=== PATIENT | female | born 1945 | race Caucasian/White ===

== ENCOUNTER → 2018-08-06 10:18 | Outpatient (CLI) | payer OTHER, SELFPAY ==
--- NOTE | 2018-08-06 10:19 | DI.RAD.S_ITS ---
PROCEDURE: XR CERVICAL SPINE 4V OR 5V INDICATIONS: Cervical spondylosis TECHNIQUE: 5 total views of the cervical spine were acquired, including bilateral oblique views. COMPARISON: None. FINDINGS: Bones: No fractures or dislocations to the T1 level. No suspicious lytic or blastic lesions are seen. Mild anterolisthesis can be seen at the C5-C6 and the C6-C7 levels. There is mild to space narrowing at C6-C7. Moderate to severe disc space narrowing is seen at C7-T1. Oblique images moderate neural foraminal narrowing on the left at the C3-C4 level with mild neural foraminal narrowing at C4-C5 and C5-C6 and moderate neural foraminal narrowing at C6-C7. On the right, there is mild to moderate neural foraminal narrowing seen at C4-C5 with at least moderate neural foraminal narrowing at C5-C6 and mild neural foraminal narrowing at C6-C7. Multiple levels of facet arthropathy are seen. Soft tissues: No prevertebral soft tissue swelling. The visualized lung apices are unremarkable. IMPRESSION: Multiple levels of cervical spine degenerative change are seen, which are most prominent inferiorly. Dictated by: Matthew Martinez M.D. on 08/06/2018 at 10:28 Approved by: Matthew Martinez M.D. on 08/06/2018 at 10:32
== END ==
PROVIDERS: PCP Family Medicine; Visit Provider Physical Medicine & Rehabilitation
DX: M47.812 Spondylosis without myelopathy or radiculopathy, cervical region (principal); M48.02 Spinal stenosis, cervical region
CPT/HCPCS: 72050

== ENCOUNTER 2019-01-02 07:29 | Outpatient (CLI) | payer OTHER, SELFPAY ==
[2019-01-02] VITALS (7 sets, daily range): BP systolic 130–160; BP diastolic 71–87; PULSE 74–85; RESP 16–18; TEMP 36.2; O2SAT 95–100
--- NOTE | 2019-01-02 07:31 | DI.RAD.S_ITS ---
PROCEDURE: PAIN L/S TRANSFORAMINAL INJECT INDICATIONS: Lumbosacral spondylosis FINDINGS: Fluoroscopic spot filming was performed to verify placement of spinal needles at the L3-4 right-sided level(s), as labeled on the films. Appropriate location(s) of the needle tip(s) was confirmed by injection of iodinated contrast. IMPRESSION: Successful needle tip localization for right L3-4 nerve root epidural steroid injection. Dictated by: Ramu Sorto M.D. on 01/04/2019 at 9:20 Approved by: Ramu Sorto M.D. on 01/04/2019 at 9:21
[2019-01-02] MEDS: MIDAZOLAM 5 MG/5 ML VIAL IV (08:20)
--- NOTE | 2019-01-02 08:34 | PM.PROC.1 ---
Procedures Date/Time Date of procedure: 01/02/19 Time of procedure: 08:34 General Procedure description: PROVIDER: Kennedy Hadley DO Operative Note PREOP DIAGNOSIS 1. FORAMINAL STENOSIS WITH LE SYMPTOMS, POST OP DIAGNOSIS 1. FORAMINAL STENOSIS WITH LE SYMPTOMS, PROCEDURES 1. FLUOROSCOPICALLY GUIDED CONTRAST CONTROLLED TRANSFORAMINAL EPIDURAL STEROID INJECTION - LEFT L3/4 TFESI SURGEON: Kennedy Hadley DO INDICATIONS Zee is referred by Dr. Hartmann for treatment of Foraminal Stenosis with left LE Symptoms FINDINGS Foraminal Nerve Root Compression secondary to disc disease and facet hypertrophy DESCRIPTION OF PROCEDURE Following denial of allergy and review of potential side effects and complications, including, but not necessarily limited to, infection, allergic reaction, local tissue breakdown, stroke, temporary or permanent nerve injury, paralysis, and possible , the patient indicated that the patient understood and agreed to proceed. An informed consent document was signed by the patient, witnessed by a nurse, and placed in the patient's chart. Additionally, other treatment options including medications, modalities, and physical therapy were reviewed with the patient. After review of previous anaesthesic history and IV conscious sedation the patient was deemed safe to proceed with todays procedure with IV conscious sedation as ASA class II designation. Safety time-out was performed to confirm patient ID, procedure to be performed and site of procedure. IV sedation was accomplished with a combination of 3mg of Versed was administered by the RN after DO order, titrated to patient comfort during the course of the procedure while the patient remained responsive to all verbal commands In the prone position following sterile prep and drape of the lumbar region, the left L3/4 posterior neuroforamen was identified fluoroscopically. The skin was anesthetized via a 25-gauge 1.5-inch needle with 1% lidocaine solution. At this point, a 25-gauge 3.5-inch spinal needle was atraumatically introduced and advanced under fluoroscopic guidance through the posterior left L3/4 neuroforamen to approximately the anterior aspect of the canal. Depth was confirmed on lateral view. Following negative aspiration, injection of approximately 1.5 cc of Isovue 200 under live fluoroscopy in the AP view confirmed excellent flow along the nerve root, into the epidural space without vascular or intrathecal uptake observed Radiological data, including multiple fluoroscopic views of the lumbosacral spine, reveal a spinal needle at the left L3/4 posterior neuroforamen. Subsequent views show flow of contrast material flowing superiorly and inferiorly along the nerve root confirming epidural flow. Subsequently, a test dose of 1.5 cc of 1% lidocaine solution was administered and patient was observed for two minutes for signs or symptoms of complications, including abdominal pain, shortness of breath, bilateral upper or lower extremity weakness, nausea and vomiting, prior to steroid injection. At this point, a total of 2cc or 20mg of dexamethasone was injected without incident. The patient tolerated the procedure well without signs or symptoms of complications prior to transfer to the recovery area continued monitoring without incident. The patient was then transferred to the recovery area where they were observed for an appropriate time after the injection. The patient reported a VAS score of 7 prior to the procedure and a post-procedure VAS of 0. Total Fluoroscopy Time: 24.2 seconds Total Conscious Sedation Time: 24min POST OP INSTRUCTIONS The patient was provided a Pain Log to continue to record their response to the target-specific procedure prior to follow-up visit with their referring physician. Additionally, specific post-injection care instructions and a contact number to our office were provided if concerns arise regarding possible complications associated with the procedure are suspected. Kennedy Hadley DO Complications: none
--- NOTE | 2019-01-02 08:38 | PC.NURSE ---
pt tolerated procedure, able to get off the table with 2 person standby assist. Transferred pt to pre procedure room for continued monitoring by Vernell ALANIS.
[2019-01-02] MEDS: IOPAMIDOL 15 ML VIAL 3 ML INJ (08:40)
[2019-01-02] MEDS: BUPIVACAINE 0.25% (PF) VIAL 2 ML INJ (08:40)
--- NOTE | 2019-01-02 08:40 | PC.NURSE ---
ACCEPTED CARE OF PT IN STABLE CONDITION UPON ARRIVAL TO POST PROC AREA
[2019-01-02] MEDS: DEXAMETHASONE 10 MG/ML VIAL 20 MG INJ (08:41)
== END 2019-01-02 08:49 | disposition home or self-care (01) ==
LOC: RAD 07:30
PROVIDERS: PCP Family Medicine; Visit Provider Physical Medicine & Rehabilitation
DX: M48.061 Spinal stenosis, lumbar region without neurogenic claudication (principal); M51.16 Intervertebral disc disorders with radiculopathy, lumbar region
CPT/HCPCS: 64483; 99152; J1100; J2250

== ENCOUNTER → 2019-02-20 09:31 | Outpatient (CLI) | payer OTHER, SELFPAY ==
--- NOTE | 2019-02-20 09:34 | DI.RAD.S_ITS ---
PROCEDURE: XR LUMBAR SPINE 6V W BENDING INDICATIONS: lumbar spine pain TECHNIQUE: 7 total views of the lumbar spine were acquired, including flexion and extension views and bilateral oblique views. COMPARISON: [facility], CT, ABDOMEN W&WO CONTRAST, 01/31/2018, 9:50. [facility], MR, L-SPINE WITHOUT CONTRAST, 03/24/2017, 9:02. [facility], CR, L-SPINE 2-3 VIEWS, 09/30/2016, 9:25. FINDINGS: Bones: 5 nonrib-bearing, lumbar type vertebral bodies are seen. Znsx-qx-aaohohbm dextroconvex scoliotic curvature is seen. Grade 1 anterolisthesis is seen at the L4-L5 level. No associated pars defects can be seen on oblique images. There is moderate loss of disc height at L3-L4 and L4-L5, with mild loss of disc height at L5-S1. The disc heights otherwise appear well-preserved. Relatively prominent lower lumbar spine facet arthropathy is seen. Age-appropriate lower thoracic spine degenerative changes are seen. Soft tissues: Overlying bowel gas pattern is normal. No suspicious soft tissue calcifications. Flexion/extension: There is limited range of motion, without abnormal subluxation. IMPRESSION: Grade 1 anterolisthesis of the L4-L5, without associated pars defects. Limited range of motion, without abnormal subluxation. [id number]-[id number] dextroconvex scoliotic curvature. Degenerative changes are seen, which are most prominent at L4-L5. Dictated by: Matthew Martinez M.D. on 02/20/2019 at 9:15 Approved by: Matthew Martinez M.D. on 02/20/2019 at 9:18
== END ==
PROVIDERS: PCP Family Medicine; Visit Provider Physical Medicine & Rehabilitation
DX: M54.5 Low back pain (principal); M43.16 Spondylolisthesis, lumbar region; M47.816 Spondylosis without myelopathy or radiculopathy, lumbar region; M47.817 Spondylosis without myelopathy or radiculopathy, lumbosacral region; M41.9 Scoliosis, unspecified
CPT/HCPCS: 72114

== ENCOUNTER 2019-03-06 13:49 | Outpatient (CLI) | payer OTHER, SELFPAY ==
[2019-03-06] VITALS (8 sets, daily range): BP systolic 120–158; BP diastolic 53–88; PULSE 72–89; RESP 16–18; TEMP 36.5; O2SAT 96–98
--- NOTE | 2019-03-06 13:51 | DI.RAD.S_ITS ---
PROCEDURE: PAIN L/SI FACET INJ/BLK 1STL INDICATIONS: SPONDYLOSIS FINDINGS: Fluoroscopic spot filming was performed to verify placement of spinal needles at the L3-L4, L4-L5, L5-S1 level(s), as labeled on the films. Appropriate location(s) of the needle tip(s) was confirmed by injection of iodinated contrast. Dictated by: Mal Rodriguez M.D. on 03/06/2019 at 16:15 Approved by: Mal Rodriguez M.D. on 03/06/2019 at 16:15
[2019-03-06] MEDS: fentaNYL 100 MCG/2 ML INJ 50 MCG IV (14:56)
[2019-03-06] MEDS: MIDAZOLAM 5 MG/5 ML VIAL IV (14:56)
[2019-03-06] MEDS: LIDOCAINE 1% 20 ML INJ 10 ML INJ (15:01)
[2019-03-06] MEDS: IOPAMIDOL 15 ML VIAL 3 ML INJ (15:01)
[2019-03-06] MEDS: BUPIVACAINE 0.5% (PF) VIAL 2 ML INJ (15:02)
[2019-03-06] MEDS: BETAMETHASONE 30 MG/5 ML MDV 12 MG INJ (15:02)
--- NOTE | 2019-03-06 15:04 | PC.NURSE ---
ASSISTING PT OFF TABLE AND TRANSPORTING TO POST PROC AREA IN STABLE CONDITION
--- NOTE | 2019-03-06 15:10 | P.PCN_ITS ---
Procedures Date/Time Date of procedure: 03/06/19 Time of procedure: 15:07 General Procedure description: PREOP DIAGNOSIS 1. FACET ARTHROPATHY, 2. AXIAL LBP, 3. MULTILEVEL DDD, POST OP DIAGNOSIS 1. FACET ARTHROPATHY, 2. AXIAL LBP, 3. MULTILEVEL DDD, PROCEDURES 1. FLUORSCOPICALLY GUIDED CONTRAST CONTROLLED FACET JOINT INJECTIONS LEFT L3/4, L4/5, L5/S1 SURGEON: Kennedy Hadley, DO INDICATIONS Zee is referred by for treatment of Axial LBP FINDINGS Multilevel Facet Arthropathy with Clinically significant axial LBP DESCRIPTION OF PROCEDURE Fluoroscopically guided, contrast-controlled left L3/4, L4/5, L5/S1 facet joint injections. Following denial of allergy and review of potential side effects and complications, including, but not necessarily limited to, infection, allergic reaction, local tissue breakdown, stroke, temporary or permanent nerve injury, paralysis, and possible , the patient indicated that the patient understood and agreed to proceed. An informed consent document was signed by the patient, witnessed by a nurse, and placed in the patient's chart. Additionally, other treatment options including medications, modalities, and physical therapy were reviewed with the patient. After review of previous anaesthesic history and IV conscious sedation the patient was deemed safe to proceed with todays procedure with IV conscious sedation as ASA class II designation. Safety time-out was performed to confirm patient ID, procedure to be performed and site of procedure. IV sedation was accomplished with a combination of 3mg of Versed and 50mcg of Fentanyl was administered by the RN after DO order, titrated to patient comfort during the course of the procedure while the patient remained responsive to all verbal commands. In the prone position, following sterile prep and drape of the lumbar region, the posterior aspect of the left L3/4, L4/5, L5/S1 facet joints were identified fluoroscopically. The skin was anesthetized via a 25-gauge 1.5-inch needle with 1% lidocaine solution into the corresponding facet joints. At this point, a 22- gauge 3.5-inch spinal needle was atraumatically introduced and advanced under fluoroscopic guidance into the corresponding facet joints. Following negative aspiration, injections of approximately 0.2-cc of Isovue 200 confirmed interarticular placement without vascular uptake. Radiological data, including multiple fluoroscopic views of the lumbosacral spine, reveal a spinal needle at the left L3/4, L4/5, L5/S1 facet joints. Subsequent views show flow of contrast material both superiorly and inferiorly within the joint space without vascular or intrathecal uptake. At this point, a total of 0.5cc including a mixture of 0.25cc Marcaine and 0.25cc betamethasone was injected without complication into each of the corresponding facet joints. The procedure tolerated the procedure well without signs or symptoms of complications prior to transfer to the recovery area continued monitoring without incident. The patient was then transferred to the recovery area where they were observed for an appropriate period of time after the injection. The patient reported a VAS score of 7 prior to the procedure and a post-procedure VAS of 0. Total Fluoroscopy Time: 12.7 seconds Total Conscious Sedation Time: 24min POST OP INSTRUCTIONS The patient was provided a Pain Log to continue to record their response to the target-specific procedure prior to follow-up visit with their referring physician. Additionally, specific post-injection care instructions and a contact number to our office were provided if concerns arise regarding possible complications associated with the procedure are suspected. Kennedy Hadley DO Complications: none
--- NOTE | 2019-03-06 15:35 | PC.NURSE ---
Pt returned from procedure awake and alert, able to transfer to chair from W/C. Resumed monitoring from Vernell ALANIS.
== END 2019-03-06 15:30 ==
PROVIDERS: PCP Family Medicine; Visit Provider Physical Medicine & Rehabilitation
DX: M47.817 Spondylosis without myelopathy or radiculopathy, lumbosacral region (principal); M47.816 Spondylosis without myelopathy or radiculopathy, lumbar region; M54.5 Low back pain; M51.36 Other intervertebral disc degeneration, lumbar region; M51.37 Other intervertebral disc degeneration, lumbosacral region
CPT/HCPCS: 64493; 64494; 64495; 99152; J0702; J2250; J3010

== ENCOUNTER → 2019-08-08 19:01 | Outpatient (CLI) | payer OTHER, SELFPAY ==
--- NOTE | 2019-08-08 19:05 | DI.MRI.S_ITS ---
PROCEDURE: MR LUMBAR SPINE WO CON INDICATIONS: DORSALGIA TECHNIQUE: Noncontrast sagittal T1 spin echo and T2 fast echo, sagittal STIR, axial T1 and T2 fast spin echo through the lumbar spine. In cases with scoliosis, additional coronal T2 fast spin echo may be performed. COMPARISON: None. FINDINGS: Image quality: Excellent. Alignment and Curvature: There is mild L3-L4 and L4-L5 anterolisthesis secondary to facet hypertrophy. Bone Marrow: Reactive endplate change is noted adjacent to the L4-L5 and L5-S1 discs.. No acute vertebral body compression fractures. Spinal Cord: Conus medullaris terminates at the L2 level. Visualized cord demonstrates normal signal and size. Paraspinous Soft Tissues: No paravertebral masses. 2.5 cm cyst noted in the right lobe of the visualized liver. L1-L2: Loss of disc signal. Mild, diffuse disc bulge. Mild narrowing of the central canal. Mild bilateral neural foraminal narrowing. No neural compression. L2-L3: Loss of disc signal. Mild, diffuse disc bulge. Mild narrowing of the central canal. Mild bilateral neural foraminal narrowing. No neural compression. L3-L4: Loss of disc signal and height. Mild, diffuse disc bulge. Severe facet and moderate ligamentum flavum hypertrophy. Moderate narrowing of the central canal. Moderate right and severe left neural foraminal narrowing with compression of the exiting left L3 nerve root. L4-L5: Loss of the signal and height. Mild, diffuse disc bulge. Severe bilateral facet hypertrophy. Severe ligamentum flavum hypertrophy. Severe narrowing of the central canal with compression of the nerve roots of cauda equina. Severe right and moderate left neural foraminal narrowing with compression of the exiting right L4 nerve root. L5-S1: Loss of the signal. Mild, diffuse disc bulge. Mild bilateral facet hypertrophy. No central stenosis. Mild bilateral neural foraminal narrowing. No neural compression. IMPRESSION: 1. Grade I L3-L4 and L4-L5 degenerative spondylolisthesis. 2. Multilevel degenerative disc disease. 3. Severe L4-L5 central canal narrowing. Moderate L3-L4 central canal narrowing. Mild L1-L2-L2-L3 central canal narrowing. 4. Moderate right and severe left L3-L4 neural foraminal narrowing. Severe right and moderate left L4-L5 neural foraminal narrowing. Mild bilateral L1-L2, L2-L3 and L5-S1 neural foraminal narrowing. 5. Compression of the nerve roots of cauda equina at the level of the L4-L5 disc secondary to central canal narrowing. 6. Compression of the exiting left L3 nerve root and the exiting right L4 nerve root secondary to neural foraminal narrowing Dictated by: Georgie Gibbs MD, PhD on 08/09/2019 at 8:26 Approved by: Georgie Gibbs MD, PhD on 08/09/2019 at 9:02
== END ==
PROVIDERS: PCP Family Medicine; Visit Provider Neurological Surgery
DX: M54.9 Dorsalgia, unspecified (principal); M43.16 Spondylolisthesis, lumbar region; M51.36 Other intervertebral disc degeneration, lumbar region; M51.37 Other intervertebral disc degeneration, lumbosacral region; M48.061 Spinal stenosis, lumbar region without neurogenic claudication; M48.07 Spinal stenosis, lumbosacral region
CPT/HCPCS: 72148

== ENCOUNTER → 2019-09-19 08:42 | Outpatient (CLI) | payer OTHER, SELFPAY ==
--- NOTE | 2019-09-19 | DI.MG.S_ITS ---
BILATERAL DIGITAL SCREENING MAMMOGRAM 3D/2D WITH CAD: 09/19/2019 CLINICAL: Routine screening. Family history of breast cancer. Comparison is made to exams dated: 09/14/2017 mammogram, 02/18/2014 mammogram, 02/11/2013 mammogram, 12/14/2011 mammogram, and 09/10/2010 mammogram - [facility]. There are scattered fibroglandular elements in both breasts. Current study was also evaluated with a Computer Aided Detection (CAD) system. There are new grouped pleomorphic calcifications in the right breast sub-areolar depth central to the nipple seen on the craniocaudal view only. No other significant masses, calcifications, or other findings are seen in either breast. IMPRESSION: INCOMPLETE: NEEDS ADDITIONAL IMAGING EVALUATION The new grouped pleomorphic calcifications in the right breast are indeterminate. Additional views with possible ultrasound are recommended. This exam was interpreted at Station ID: [id number]. NOTE: For mammograms, a report in lay terms will be sent to the patient. Approximately 15% of breast malignancies will not be visualized mammographically. In the management of a palpable breast mass, a negative mammogram must not discourage biopsy of a clinically suspicious lesion. Electronically Signed By: Rafael Dela Cruz M.D. slc/:09/19/2019 09:37:41 letter sent: Additional Imaging Needed ACR BI-RADS Category 0: Incomplete 3340F
== END ==
PROVIDERS: PCP Family Medicine; Visit Provider Family Medicine
DX: Z12.31 Encounter for screening mammogram for malignant neoplasm of breast (principal); Z80.3 Family history of malignant neoplasm of breast
CPT/HCPCS: 77063; 77067

== ENCOUNTER → 2019-10-24 14:33 | Outpatient (CLI) | payer OTHER, SELFPAY ==
--- NOTE | 2019-10-24 | DI.US.S_ITS ---
LIMITED ULTRASOUND OF RIGHT BREAST: 10/24/2019 CLINICAL: Additional evaluation requested from prior study. Comparison is made to exams dated: 10/24/2019 mammogram, 09/19/2019 mammogram, 09/14/2017 mammogram, 02/18/2014 mammogram, 02/11/2013 mammogram, and 12/14/2011 mammogram - [facility]. Color flow and real-time ultrasound of the right breast 6 o'clock, 12 o'clock, and retroareolar regions were performed. Malloy scale images of the real-time examination were reviewed. No underlying breast mass or abnormality is identified. There is no ultrasound correlate for the previously identified calcifications in the right breast sub-areolar depth central to the nipple seen on the craniocaudal view only on comparison screening mammograms of 09/19/19, which were less prominent on additional views including magnification views. IMPRESSION: PROBABLY BENIGN No ultrasound correlate for the previously identified calcifications in the right breast sub-areolar depth central to the nipple seen on the craniocaudal view only screening and diagnostic mammography. A follow-up mammogram and possible ultrasound in 6 months is recommended to demonstrate stability. The patient is advised to monitor her breasts and to return sooner for re-evaluation should she feel anything grow or change. This exam was interpreted at Station ID: [id number]. Electronically Signed By: Fareed Saleh M.D. ecl/:10/24/2019 16:06:07 letter sent: Followup Recommended Ultrasound BI-RADS: 3 Probably benign
--- NOTE | 2019-10-24 | DI.MG.S_ITS ---
UNILATERAL RIGHT DIGITAL DIAGNOSTIC MAMMOGRAM 3D/2D WITH ADDITIONAL VIEWS: 10/24/2019 CLINICAL: Additional evaluation requested from prior study. Comparison is made to exams dated: 09/19/2019 mammogram, 09/14/2017 mammogram, and 02/18/2014 mammogram - [facility]. There are scattered fibroglandular elements in right breast. Previously identified calcifications in the right breast sub-areolar depth central to the nipple seen on the craniocaudal view only on comparison screening mammograms of 09/19/19 are less prominent and demonstrate a more grouped punctate morphology on additional views including magnification views. These may have appeared more prominent on comparison screening mammograms of 09/19/19 secondary to reconstruction imaging artifact. IMPRESSION: INCOMPLETE: NEEDS ADDITIONAL IMAGING EVALUATION Previously identified calcifications in the right breast sub-areolar depth central to the nipple seen on the craniocaudal view only on comparison screening mammograms of 09/19/19 are less prominent and demonstrate a more grouped punctate morphology on additional views including magnification views. A targeted ultrasound is recommended for further evaluation, and will be performed immediately following this exam. This exam was interpreted at Station ID: [id number]. NOTE: For mammograms, a report in lay terms will be sent to the patient. Approximately 15% of breast malignancies will not be visualized mammographically. In the management of a palpable breast mass, a negative mammogram must not discourage biopsy of a clinically suspicious lesion. Electronically Signed By: Fareed Saleh M.D. ecl/:10/24/2019 16:04:02 ACR BI-RADS Category 0: Incomplete [id number]
== END ==
PROVIDERS: PCP Family Medicine; Visit Provider Family Medicine
DX: R92.8 Other abnormal and inconclusive findings on diagnostic imaging of breast (principal)
CPT/HCPCS: 76642; 77065; G0279

== ENCOUNTER → 2020-03-19 14:13 | Outpatient (CLI) | payer OTHER, SELFPAY ==
--- NOTE | 2020-03-19 | DI.RAD.S_ITS ---
PROCEDURE: XR HIP W PEL IF DONE RT 2V INDICATIONS: Right hip pain TECHNIQUE: AP pelvis with lateral view(s) of the right hip(s). COMPARISON: [facility], MR, MR LUMBAR SPINE WO CON, 08/08/2019, 19:13. [facility], XA, PAIN L/SI FACET INJ/BLK 1STL, 03/06/2019, 15:01. [facility], CR, XR LUMBAR SPINE 6V W BENDING, 02/20/2019, 9:38. [facility], US, ABDOMEN COMPLETE, 01/18/2018, 20:22. [facility], CT, ABDOMEN W&WO CONTRAST, 01/31/2018, 9:50. FINDINGS: Bones: No fractures or dislocations. Pelvic ring appears intact. No suspicious bony lesions. Mild symmetric hip joint osteoarthritis. Soft tissues: The visualized bowel gas pattern is normal. No suspicious soft tissue calcifications are found on the left but there is a void moderately complex calcification centered at the right adnexa measuring up to 2.6 cm craniocaudad and 3.4 cm transverse. IMPRESSION: The hip joint osteoarthritis is symmetric bilaterally-as source of asymmetric right-sided pain is not found. There is an unusual prominent calcification centered relatively far to the right of midline within the pelvis measuring up to 2.6 x 3.4 cm. This might represent a calcified uterine fibroid but could represent a calcified ovarian mass. Pelvic ultrasound is recommended for more accurate characterization. Prior CT scanning of the abdomen performed in January of 2018 did not include this area. This calcification was not present on plain film imaging of the lumbosacral spine that included the same area 02/20/19. Dictated by: Ramu Sorto M.D. on 03/19/2020 at 15:57 Approved by: Ramu Sorto M.D. on 03/19/2020 at 16:02
== END ==
PROVIDERS: PCP Family Medicine; Referring Provider Family Medicine; Visit Provider Family Medicine
DX: M25.551 Pain in right hip (principal); M16.0 Bilateral primary osteoarthritis of hip
CPT/HCPCS: 73502

== ENCOUNTER → 2020-05-04 08:39 | Outpatient (CLI) | payer OTHER, SELFPAY ==
--- NOTE | 2020-05-04 | DI.MG.S_ITS ---
UNILATERAL RIGHT DIGITAL DIAGNOSTIC MAMMOGRAM 3D/2D SHORT-TERM FOLLOW-UP: 05/04/2020 CLINICAL: Short term follow up of the right breast. Comparison is made to exams dated: 09/19/2019 mammogram, 09/14/2017 mammogram, and 02/18/2014 mammogram - [facility]. There are scattered fibroglandular elements in right breast. The benign calcification in the right breast anterior depth central to the nipple seen on the craniocaudal view only is no longer seen. No other significant masses or calcifications are seen in the breast. IMPRESSION: There is no mammographic evidence of malignancy. Return to annual mammogram screening schedule is recommended. This exam was interpreted at Station ID: [id number]. NOTE: For mammograms, a report in lay terms will be sent to the patient. Approximately 15% of breast malignancies will not be visualized mammographically. In the management of a palpable breast mass, a negative mammogram must not discourage biopsy of a clinically suspicious lesion. Electronically Signed By: Jeremie jang/mohsen:05/04/2020 09:24:44 letter sent: Normal Exam ACR BI-RADS Category 2: Benign Finding(s) 3342F
== END ==
PROVIDERS: PCP Family Medicine; Referring Provider Family Medicine; Visit Provider Family Medicine
DX: R92.8 Other abnormal and inconclusive findings on diagnostic imaging of breast (principal)
CPT/HCPCS: 77065; G0279

== ENCOUNTER → 2020-05-06 14:04 | Outpatient (CLI) | payer OTHER, SELFPAY | PROVIDERS: PCP Family Medicine; Referring Provider Family Medicine; Visit Provider Family Medicine | DX: M85.88 Other specified disorders of bone density and structure, other site (principal); Z78.0 Asymptomatic menopausal state | CPT/HCPCS: 77080 ==

== ENCOUNTER → 2020-06-08 10:59 | Outpatient (CLI) | payer OTHER, SELFPAY ==
--- NOTE | 2020-06-08 | DI.US.S_ITS ---
PROCEDURE: US PELVIC COMPLETE INDICATIONS: PELVIC MASS TECHNIQUE: Real-time scanning was performed of the pelvic organs, with image documentation. Additional endovaginal scanning was necessary due to incomplete visualization of the adnexal and endometrial structures by transabdominal scanning. COMPARISON: [facility], CT, ABDOMEN W&WO CONTRAST, 01/31/2018, 9:50. FINDINGS: Transabdominal scanning: Limited scanning through the kidneys shows no hydronephrosis. No pathologic free abdominal or pelvic fluid. Endovaginal scanning: Uterus: Uterus is normal in size at 6.5 x 3 x 4.2 cm. Hypoechoic uterine lesions are seen, which are attributed to fibroids. They measure as follows: Right anterior, pedunculated with internal calcifications, 3.8 x 2 x 2.7 cm Mid uterus posteriorly, intramural, with internal calcifications, 0.9 x 0.5 x 0.8 cm Left anterior uterus, intramural, 0.8 x 0.6 x 0.8 cm The endometrium measures 8 mm in combined thickness. Mild cystic changes can be seen along the endometrial stripe. Ovaries: The right ovary is not seen. The left ovary measures 2.6 x 1 x 1.2 cm. Cysts are seen involving the left ovary, with the largest measuring 9 mm. No adnexal masses can be seen on either side. IMPRESSION: The endometrial stripe is abnormally thickened. Differential diagnosis includes endometrial neoplasm and endometrial hyperplasia. Recommend correlation with endometrial histology, if clinically appropriate. Pelvic fibroids are seen, including an apparent pedunculated 3.8 cm fibroid along the anterior aspect of the uterus. If clinically appropriate, please consider a gynecological protocol MRI (without and with contrast) for further evaluation (assuming that there is no contraindication). Dictated by: Matthew Martinez M.D. on 06/08/2020 at 11:52 Approved by: Matthew Martinez M.D. on 06/08/2020 at 11:55
== END ==
PROVIDERS: PCP Family Medicine; Referring Provider Family Medicine; Visit Provider Family Medicine
DX: R19.00 Intra-abdominal and pelvic swelling, mass and lump, unspecified site (principal); D25.1 Intramural leiomyoma of uterus; R93.89 Abnormal findings on diagnostic imaging of other specified body structures
CPT/HCPCS: 76830; 76856

== ENCOUNTER → 2021-01-07 11:02 | Outpatient (CLI) | payer OTHER, SELFPAY ==
--- NOTE | 2021-01-07 | DI.RAD.S_ITS ---
PROCEDURE: XR ANKLE LT MIN 3V INDICATIONS: LEFT FOOT/ANKLE PAIN TECHNIQUE: 3 views of the ankle were acquired. COMPARISON: None. FINDINGS: Bones: No acute fractures or dislocations. Chronic appearing cortical irregularities involving the medial malleolus, distal fibula, and inferior margin of the cuboid. Ankle mortise is normally aligned. No suspicious bony lesions. Soft tissues: No tibiotalar joint effusion. Achilles tendon appears normal. IMPRESSION: Left ankle without acute fracture or malalignment. Chronic appearing cortical irregularities of the medial malleolus, distal fibula, and cuboid. If there are persistent symptoms or clinical suspicion for pathology, then repeat radiographs or advanced imaging (CT, MRI or bone scan) may be considered for further evaluation. Dictated by: William Olivarez M.D. on 01/07/2021 at 14:12 Approved by: William Olivarez M.D. on 01/07/2021 at 14:15
--- NOTE | 2021-01-07 | DI.RAD.S_ITS ---
PROCEDURE: XR FOOT LT MIN 3V INDICATIONS: LEFT FOOT/ANKLE PAIN TECHNIQUE: 3 views of the foot were acquired. COMPARISON: None. FINDINGS: Bones: No acute fractures or dislocations. Chronic appearing cortical irregularities involving the cuboid, navicular, medial malleolus, and distal fibula. Degenerative changes of the left 1st metatarsophalangeal joint. No suspicious bony lesions. Soft tissues: No tibiotalar joint effusion. Achilles tendon appears normal. IMPRESSION: 1. Left foot without acute fracture or malalignment. 2. Degenerative changes of the left 1st metatarsophalangeal joint. 3. Chronic appearing cortical irregularities of the cuboid, navicular, medial malleolus, and distal fibula. If there are persistent symptoms or clinical suspicion for pathology, then repeat radiographs or advanced imaging (CT, MRI or bone scan) may be considered for further evaluation. Dictated by: William Olivarez M.D. on 01/07/2021 at 14:15 Approved by: William Olivarez M.D. on 01/07/2021 at 14:16
== END ==
PROVIDERS: PCP Family Medicine; Referring Provider Family Medicine; Visit Provider Family Medicine
DX: M79.672 Pain in left foot (principal)
CPT/HCPCS: 73610; 73630

== ENCOUNTER → 2021-01-22 19:13 | Outpatient (CLI) | payer OTHER, SELFPAY ==
--- NOTE | 2021-01-22 19:15 | DI.MRI.S_ITS ---
PROCEDURE: MR ANKLE LT WO CON INDICATIONS: LEFT ANKLE PAIN TECHNIQUE: Noncontrast sagittal T1 spin echo and T2 fast spin echo with fat saturation, axial proton density fast spin echo and T2 fast spin echo with fat saturation, coronal T1 spin echo and T2 fast spin echo with fat saturation through the ankle/hindfoot. COMPARISON: None. FINDINGS: Bones and joints: No bone marrow contusions or fractures. No hindfoot coalitions. No osteochondral injuries of the talar dome. Large tibiotalar joint effusion. There is also multiloculated appearing cystic fluid collection in the region of the sinus tarsi in the lateral extensor retinaculum. This is probably synovial or ganglion cyst. This measures approximately 1.3 x 1.0 cm on axial pulse sequences. Medial structures: Posterior tibialis appears markedly thickened with amorphous intrasubstance signal changes. There is also tenosynovitis.. Flexor digitorum longus intact. There is uthj-vj-lfzedumv tenosynovitis. Flexor hallucis longus tendon intact. The posterior tibial neurovascular bundle appears normal within the tarsal tunnel, without extrinsic mass effect. Deltoid ligament complex appears intact. The spring ligament appears intact. Lateral structures: Anterior talofibular ligament is likely ruptured and not well visualized.. Calcaneofibular ligament intact. Posterior talofibular ligament intact. Anterior and posterior tibiofibular ligaments appear intact, as is the intermalleolar ligament. Tibiofibular syndesmosis is normal in width at 2 mm or less. Peroneus longus and brevis tendons appear normal. There is peroneal tenosynovitis. Bony peroneal tubercle and retrotrochlear prominence are normal in size. Sinus tarsi demonstrates loss of the normal fatty signal intensity. Anterior structures: Tibialis anterior intact. Extensor hallucis longus intact. Extensor digitorum longus tendon intact. Dorsal talonavicular ligament appears intact. Posterior and plantar structures: Achilles tendon is intact. Medial and lateral bands of the plantar fascia intact. No abductor digiti quinti muscle atrophy to suggest García neuropathy. IMPRESSION: Posterior tibialis tendinopathy, thickening and associated tenosynovitis. Fnio-xd-[id number] flexor digitorum tenosynovitis Ruptured anterior talofibular ligament, technically age unknown. Peroneal tenosynovitis. Large tibiotalar joint effusion Large ganglion or synovial cyst in the region of the lateral sinus tarsi , in addition to loss of the normal fat signal intensity, raising possibility of sinus tarsi syndrome. Please correlate to clinical exam findings , especially if there is lateral instability. Dictated by: Mal Rodriguez M.D. on 01/25/2021 at 9:04 Approved by: Mal Rodriguez M.D. on 01/25/2021 at 9:17
== END ==
PROVIDERS: PCP Family Medicine; Referring Provider Family Medicine; Visit Provider Family Medicine
DX: M25.572 Pain in left ankle and joints of left foot (principal); M65.872 Other synovitis and tenosynovitis, left ankle and foot; S93.492A Sprain of other ligament of left ankle, initial encounter; M25.472 Effusion, left ankle; M67.472 Ganglion, left ankle and foot
CPT/HCPCS: 73721

== ENCOUNTER → 2021-10-02 10:15 | Outpatient (CLI) | payer OTHER, SELFPAY ==
[2021-10-02 11:01] LABS: COVID19 -Nasal RAPID Negative (Negative)
== END ==
PROVIDERS: PCP Family Medicine; Visit Provider Nurse Practitioner Family
DX: Z20.822 Contact with and (suspected) exposure to COVID-19 (principal)
CPT/HCPCS: 87635

== ENCOUNTER → 2022-01-06 08:34 | Outpatient (CLI) | payer OTHER, SELFPAY ==
--- NOTE | 2022-01-06 | DI.NM.S_ITS ---
PROCEDURE: NM UPTAKE AND SCAN RADIOPHARMACEUTICAL: 0.4 ?Ci I-123 sodium iodide by mouth. INDICATIONS: Disorder of thyroid TECHNIQUE: I-123 sodium iodide was administered orally. Anterior neck images were obtained, and iodine uptake by the thyroid gland calculated using tractor operator laser leveling's software. COMPARISON: None. FINDINGS: Morphology: The thyroid gland has normal morphology and uniform activity. No 'cold' or 'hot' thyroid nodules are identified. Uptake: 6 hour thyroid uptake is 7.5 ; normal ranges are from 6-18%. 24 hour thyroid uptake is 18.5 ; normal ranges are from 10-30%. IMPRESSION: Normal thyroid uptake and scan. Dictated by: Gordy Shahid M.D. on 01/10/2022 at 15:59 Approved by: Gordy Shahid M.D. on 01/10/2022 at 16:00
== END ==
PROVIDERS: PCP Family Medicine; Referring Provider Family Medicine; Visit Provider Family Medicine
DX: E07.9 Disorder of thyroid, unspecified (principal)
CPT/HCPCS: 78014; A9516

== ENCOUNTER → 2022-02-25 10:59 | Outpatient (CLI) | payer OTHER, SELFPAY ==
--- NOTE | 2022-02-25 | DI.MG.S_ITS ---
BILATERAL DIGITAL SCREENING MAMMOGRAM 3D/2D WITH CAD: 02/25/2022 CLINICAL: Routine screening. Family history of breast cancer. Comparison is made to exams dated: 09/19/2019 mammogram, 09/14/2017 mammogram, and 05/04/2020 mammogram - [facility]. There are scattered fibroglandular elements in both breasts. Current study was also evaluated with a Computer Aided Detection (CAD) system. No significant masses, calcifications, or other findings are seen in either breast. There has been no significant interval change. IMPRESSION: NEGATIVE There is no mammographic evidence of malignancy. A 1 year screening mammogram is recommended. This exam was interpreted at Station ID: [id number]. NOTE: For mammograms, a report in lay terms will be sent to the patient. Approximately 15% of breast malignancies will not be visualized mammographically. In the management of a palpable breast mass, a negative mammogram must not discourage biopsy of a clinically suspicious lesion. Electronically Signed By: Alyssa griffith/mohsen:02/25/2022 12:38:53 letter sent: Normal Exam ACR BI-RADS Category 1: Negative [id number]
== END ==
PROVIDERS: PCP Family Medicine; Referring Provider Family Medicine; Visit Provider Family Medicine
DX: Z12.31 Encounter for screening mammogram for malignant neoplasm of breast (principal); Z80.3 Family history of malignant neoplasm of breast
CPT/HCPCS: 77063; 77067

== ENCOUNTER → 2022-05-09 09:40 | Outpatient (CLI) | payer OTHER, SELFPAY | PROVIDERS: PCP Family Medicine; Referring Provider Family Medicine; Visit Provider Family Medicine | DX: M85.89 Other specified disorders of bone density and structure, multiple sites (principal) | CPT/HCPCS: 77080 ==

== ENCOUNTER → 2022-06-20 09:01 | Outpatient (CLI) | payer OTHER, SELFPAY ==
[2022-06-20 11:42] LABS: Free T3, Triiodothyronine Free 4.12 pg/mL (2.77-5.27); Free T4, Direct Thyroxine 1.03 ng/dL (0.78-2.19)
[2022-06-20 11:55] LABS: Thyroid Stimulating Hormone 0.086 uIU/mL (0.47-4.68)
[2022-06-22 10:04] LABS: Thyrotropin Receptor AB <1.10 IU/L (0.00-1.75)
== END ==
PROVIDERS: PCP Family Medicine; Referring Provider Internal Medicine Endocrinology, Diabetes & Metabolism; Visit Provider Internal Medicine Endocrinology, Diabetes & Metabolism
DX: E05.90 Thyrotoxicosis, unspecified without thyrotoxic crisis or storm (principal)
CPT/HCPCS: 36415; 83520; 84439; 84443; 84481

== ENCOUNTER → 2023-01-11 16:33 | Outpatient (CLI) | payer OTHER, SELFPAY ==
--- NOTE | 2023-01-11 | DI.RAD.S_ITS ---
PROCEDURE: XR SHOULDER RT MIN 2V INDICATIONS: RIGHT SHOULDER PAIN TECHNIQUE: 3 views of the shoulder were acquired. COMPARISON: None. FINDINGS: Bones: No fractures or dislocations. No suspicious bony lesions. Visualized ribs appear intact. Moderate acromioclavicular degenerative narrowing. Moderate glenohumeral narrowing. Soft tissues: No suspicious soft tissue calcifications. IMPRESSION: Glenohumeral and acromioclavicular arthritic narrowing. Dictated by: Tonie Ricardo M.D. on 01/11/2023 at 20:38 Approved by: Tonie Ricardo M.D. on 01/11/2023 at 20:38
== END ==
PROVIDERS: PCP Family Medicine; Referring Provider Family Medicine; Visit Provider Family Medicine
DX: M19.011 Primary osteoarthritis, right shoulder (principal); M25.511 Pain in right shoulder
CPT/HCPCS: 73030

== ENCOUNTER → 2023-05-24 12:48 | Outpatient (CLI) | payer OTHER, SELFPAY ==
--- NOTE | 2023-05-24 | DI.MG.S_ITS ---
BILATERAL DIGITAL SCREENING MAMMOGRAM 3D/2D WITH CAD: 05/24/2023 CLINICAL: Routine screening. Family history of breast cancer. Comparison is made to exams dated: 02/25/2022 mammogram, 09/19/2019 mammogram, and 09/14/2017 mammogram - [facility]. Both breasts are heterogeneously dense, which may obscure small masses (category c / 51-75% glandular tissue). Current study was also evaluated with a Computer Aided Detection (CAD) system. No significant masses, calcifications, or other findings are seen in either breast. There has been no significant interval change. IMPRESSION: NEGATIVE There is no mammographic evidence of malignancy. A 1 year screening mammogram is recommended. Based on the Tyrer Cuzick model (a risk assessment model) the patient's lifetime risk is 6.7% and her 10 year risk is 0.0%. According to the ACR, ACS, and NCCN guidelines, an annual breast MRI exam along with mammogram is recommended if the patient's lifetime risk is 20% or greater. This exam was interpreted at Station ID: [id number]. NOTE: For mammograms, a report in lay terms will be sent to the patient. Approximately 15% of breast malignancies will not be visualized mammographically. In the management of a palpable breast mass, a negative mammogram must not discourage biopsy of a clinically suspicious lesion. Electronically Signed By: Edwin holliday/mohsen:05/24/2023 15:13:17 letter sent: Normal Exam ACR BI-RADS Category 1: Negative [id number]
== END ==
PROVIDERS: PCP Family Medicine; Referring Provider Family Medicine; Visit Provider Family Medicine
DX: Z12.31 Encounter for screening mammogram for malignant neoplasm of breast (principal); Z80.3 Family history of malignant neoplasm of breast
CPT/HCPCS: 77063; 77067

== ENCOUNTER → 2023-05-26 15:08 | Outpatient (CLI) | payer OTHER, SELFPAY ==
--- NOTE | 2023-05-26 15:09 | DI.MRI.S_ITS ---
PROCEDURE: MR LUMBAR SPINE WO CON INDICATIONS: Spondylolisthesis, lumbar region TECHNIQUE: Noncontrast sagittal T1 spin echo and T2 fast echo, sagittal STIR, and T2 fast spin echo through the lumbar spine. In cases with scoliosis, additional coronal T2 fast spin echo may be performed. COMPARISON: [facility], CR, XR LUMBAR SPINE 6V W BENDING, 02/20/2019, 9:38. [facility], MR, L-SPINE WITHOUT CONTRAST, 03/24/2017, 9:02. [facility], MR, MR LUMBAR SPINE WO CON, 08/08/2019, 19:13. FINDINGS: Image quality: This examination is limited by involuntary motion artifact. Alignment and Curvature: Mild dextroconvex scoliotic curvature is seen. Minimal retrolisthesis is seen at L2-L3. Minimal anterolisthesis is seen at L3-L4. Grade 1 L4-L5 anterolisthesis is seen. Minimal retrolisthesis is seen at L5-S1. Bone Marrow: Marrow is of normal overall signal. No acute vertebral body compression fractures. Spinal Cord: Conus medullaris terminates at the L1 level. Visualized cord demonstrates normal signal and size. Paraspinous Soft Tissues: No paravertebral masses. Liver cysts are partially seen. T12-L1: The disc height is well-preserved. Loss of disc signal is seen at this level. Mild generalized disc bulge is seen. Mild facet joint hypertrophy is seen. There is [id number] right-sided and moderate Left-sided neural foraminal narrowing. Minimal central canal narrowing is seen. These imaging findings have progressed compared to the prior study. L1-L2: The disc height is well-preserved. Loss of disc signal is seen at this level. Mild generalized disc bulge is seen. There is minimal right-sided and moderate left-sided neural foraminal narrowing. Minimal central canal narrowing is seen. No significant change from the prior. L2-L3: The disc height is well-preserved. Loss of disc signal is seen at this level. Mild to moderate disc bulge is seen. Mild facet joint hypertrophy is seen. Mild to moderate bilateral neural foraminal narrowing can be seen. Mild central canal narrowing is seen. When comparison is made with the prior images, these findings are similar. L3-L4: Moderate loss of disc height is seen. Loss of disc signal is seen. Mild to moderate disc bulge is seen. Moderate facet joint hypertrophy is seen. There is [id number] right-sided and moderate left-sided neural foraminal narrowing. No significant central canal narrowing can be seen. The degree of central canal narrowing is improved compared to 2019. L4-L5: At least moderate loss of disc height and disc signal can be seen. Reactive marrow endplate changes are seen, which are hyperintense on T1-weighted and T2-weighted imaging and most consistent with fatty metaplasia (Modic type II changes). At least moderate disc bulge is seen, which is eccentric to the right. There is a central/right disc protrusion seen. There is moderate to prominent right-sided and at least moderate left-sided facet hypertrophy. There is moderate to severe right-sided and at least moderate left-sided neural foraminal narrowing. There is a degree of compression seen upon the exiting right L4 nerve root. At least moderate central canal narrowing is seen. The degree of central canal narrowing is improved compared to the prior MRI. L5-S1: Moderate loss of disc height is seen. Loss of disc signal is seen. Reactive marrow endplate changes are seen which are hypointense on T1-weighted imaging and hyperintense on T2 weighted imaging, which is most consistent with edema (Modic type I changes). Moderate generalized disc bulge is seen. There is a superimposed central disc protrusion. Moderate facet joint hypertrophy is seen. There is at least moderate bilateral neural foraminal narrowing seen. There is a degree of compression seen upon the exiting nerve roots. Moderate central canal narrowing is seen. These imaging findings have progressed compared to the prior study. IMPRESSION: Clear interval improvement compared to 2019 in the degrees of central canal narrowing at L3-L4 and L4-L5. Interval progression of degenerative change at L5-S1 compared to 2019. Additional findings: Liver cysts Dictated by: Matthew Martinez M.D. on 05/26/2023 at 17:03 Approved by: Matthew Martinez M.D. on 05/26/2023 at 17:10
--- NOTE | 2023-05-26 15:09 | DI.MRI.S_ITS ---
PROCEDURE: MR SHOULDER RT WO CON INDICATIONS: Pain in right shoulder TECHNIQUE: Noncontrast oblique coronal T2 fast spin echo with fat saturation, oblique sagittal T1 spin echo and T2 fast spin echo with fat saturation, axial T1 spin echo and T2 fast spin echo with fat saturation through the shoulder. COMPARISON: [facility], CR, XR SHOULDER RT MIN 2V, 01/11/2023, 16:37. FINDINGS: Image quality: Excellent. Rotator cuff: There is full-thickness tearing of the supraspinatus tendon and the anterior fibers of the infraspinatus tendon measuring approximately 1.2 cm in anterior-posterior dimension with proximal tendon retraction measuring up to 3.8 cm. There is mild atrophy and grade 2 fatty infiltration of the supraspinatus muscle. The teres minor tendon is intact. There is moderate subscapularis tendinosis and high-grade partial articular sided tearing of the superior insertion. Rotator cuff musculature is otherwise normal in bulk. Bones and bursae: No acute trabecular bone injury or fracture. Chronic traction cystic changes are seen at the posterosuperior head and greater tuberosity near the rotator cuff tendon insertions. The humeral head is high riding with narrowing of the acromiohumeral interval. There is grade 2 chondromalacia in the glenohumeral joint. Moderate degenerative changes are seen at the acromioclavicular joint with subchondral cystic changes and marginal osteophyte formation. A moderate glenohumeral effusion communicates with the subacromial/subdeltoid bursa. Capsule and soft tissues: There is diffuse labral degeneration. Moderate to severe tendinosis of the proximal biceps long head tendon with suspected partial intrasubstance tearing. The glenohumeral ligaments are grossly intact. IMPRESSION: 1. Full-thickness tearing of the supraspinatus tendon and the anterior fibers infraspinatus tendon measuring 1.2 cm in anterior-posterior dimension with approximately 3.8 cm proximal tendon retraction. Mild atrophy and grade 2 fatty infiltration of the supraspinatus muscle. Humeral head is mildly high riding. 2. High-grade partial articular sided tearing of the subscapularis tendon at the superior insertion superimposed on chronic tendinosis. 3. Moderate to severe proximal biceps long head tendinosis and suspected partial intrasubstance tearing. 4. 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 Mild diffuse labral degeneration. 5. Moderate acromioclavicular joint osteoarthrosis. 6. Moderate to large glenohumeral effusion communicates with the subacromial/subdeltoid and subcoracoid bursa. Approved by: Mayito Norman M.D. on 05/26/2023 at 21:17
== END ==
PROVIDERS: PCP Family Medicine; Referring Provider Family Medicine; Visit Provider Family Medicine
DX: M94.211 Chondromalacia, right shoulder (principal); M75.121 Complete rotator cuff tear or rupture of right shoulder, not specified as traumatic; M19.011 Primary osteoarthritis, right shoulder; M25.411 Effusion, right shoulder; M48.062 Spinal stenosis, lumbar region with neurogenic claudication; M43.16 Spondylolisthesis, lumbar region; M47.816 Spondylosis without myelopathy or radiculopathy, lumbar region; M25.511 Pain in right shoulder
CPT/HCPCS: 72148; 73221

== ENCOUNTER 2024-04-26 14:55 | Emergency (ER) | payer OTHER, SELFPAY ==
[2024-04-26 15:40] VITALS: BP 173/81; PULSE 79; RESP 16; TEMP 37.1; O2SAT 98; BMI 22.6
--- NOTE | 2024-04-26 15:45 | DI.RAD.S_ITS ---
PROCEDURE: XR ANKLE RT MIN 3V INDICATIONS: Heavy object hit back, swelling, pain TECHNIQUE: 3 views of the ankle were acquired. COMPARISON: [facility], CR, XR ANKLE LT MIN 3V, 01/07/2021, 11:18. FINDINGS: Bones: Suspected chip fracture of the lateral malleolus. Soft tissues: Large tibiotalar joint effusion. Achilles tendon appears normal. IMPRESSION: Suspected chip fracture of the lateral malleolus. Large tibiotalar joint effusion. Dictated by: Vidal Lam M.D. on 04/26/2024 at 16:34 Approved by: Vidal Lam M.D. on 04/26/2024 at 16:34
--- NOTE | 2024-04-26 16:59 | ED.LOWEXIN ---
HPI - Extremity Injury (Lower) <Aliya Mejia PA-C - Last Filed: 04/26/24 17:26> General Chief Complaint: Extremity Injury, Lower Stated Complaint: rt ankle inj Time Seen by Provider: 04/26/24 16:59 Source: patient Mode of arrival: Ambulatory History of Present Illness HPI Narrative: This is a 78-year-old woman who presents with her with concern for right ankle pain. Patient states they were moving a metal bed frame this afternoon and about a 30 lb piece of the frame fell and landed on the back of her heel and ankle causing it to roll. She states she has been walking on it and ?my has been made me come in?. She says it hurts mostly on the inside of the ankle but some a little on the outside as well. She states that she does not feel that she needs crutches, she does have a walker from a previous injury that she started using today just to favor it and not put much weight on it but does not want to have crutches today. She denies numbness or tingling of the affected foot or any other injuries or concerns. Related Data Home Medications Medication Instructions Recorded Confirmed amlodipine 2.5 mg tablet (Norvasc) 5 mg PO QDAY ##0 08/15/11 10/02/21 quinapril 10 mg tablet 40 mg PO BID ##0 08/15/11 10/02/21 simvastatin 40 mg tablet 5 mg PO QDAY ##0 08/15/11 10/02/21 aspirin 81 mg tablet,delayed 81 mg PO DAILY 09/07/18 10/02/21 release cholecalciferol (vitamin D3) 25 1,000 unit PO DAILY 09/07/18 10/02/21 mcg (1,000 unit) capsule Previous Rx's Medication Instructions Recorded benzonatate 100 mg capsule 100 mg PO BID PRN cough #20 caps 10/02/21 Allergies Allergy/AdvReac Type Severity Reaction Status Date / Time clindamycin [CLINDAMYCIN] Allergy Intermediate RASH Verified 06/29/20 08:20 Review of Systems <Aliya Mejia PA-C - Last Filed: 04/26/24 17:26> Review of Systems Narrative: See HPI Patient History <Aliya Mejia PA-C - Last Filed: 04/26/24 17:26> Social History Smoking Status: Never smoker Smoking Status: Never smoker Exam <Aliya Mejia PA-C - Last Filed: 04/26/24 17:26> Narrative Exam Narrative: GENERAL: [78] year old patient appears younger than stated age. Well-appearing, Well-developed patient, in mild distress. HEAD: Atraumatic. Normocephalic. EYES: Pupils equal round and reactive. Extraocular motions intact. No scleral icterus. No injection or drainage. ENT: Nose without bleeding, purulent drainage. Airway patent. NECK: Trachea midline. CARDIOVASCULAR: Regular rate and rhythm without murmurs, gallops, or rubs. RESPIRATORY: Clear to auscultation. Breath sounds equal bilaterally. No wheezes, rales, or rhonchi. EXTREMITIES: There is swelling about the medial and lateral malleolus of the affected right foot. Range of motion of the ankle is intact with slight increase in pain with inversion and eversion. Strength is intact. There is no tenderness of the proximal fibula or of the tibia. Pedal pulses intact, capillary refill less than 2 seconds. No other edema or joint tenderness. NEURO: AOx3. SKIN: No rash or erythema of visible areas Initial Vital Signs Initial Vital Signs: Vital Signs Temperature 98.7 F 04/26/24 15:40 Pulse Rate 79 04/26/24 15:40 Respiratory Rate 16 04/26/24 15:40 Blood Pressure 173/81 H 04/26/24 15:40 Pulse Oximetry 98 04/26/24 15:40 Oxygen Delivery Method Room Air 04/26/24 15:40 <José Luis Morejon DO - Last Filed: 04/26/24 17:36> Initial Vital Signs Initial Vital Signs: Vital Signs Temperature 98.7 F 04/26/24 15:40 Pulse Rate 79 04/26/24 15:40 Respiratory Rate 16 04/26/24 15:40 Blood Pressure 173/81 H 04/26/24 15:40 Pulse Oximetry 98 04/26/24 15:40 Oxygen Delivery Method Room Air 04/26/24 15:40 Course <Aliya Mejia PA-C - Last Filed: 04/26/24 17:26> Orders Ordered: ED Orders 04/26/24 15:45 XR ankle RT min 3V Stat Vital Signs Vital signs: Vital Signs - 8 hr 04/26/24 15:40 04/26/24 17:03 Temperature 98.7 F Pulse Rate 79 Pulse Rate [Bilateral Dorsalis Pedis] 74 Respiratory Rate 16 Blood Pressure 173/81 H Pulse Oximetry 98 Oxygen Delivery Method Room Air <José Luis Morejon DO - Last Filed: 04/26/24 17:36> Orders Ordered: ED Orders 04/26/24 15:45 XR ankle RT min 3V Stat Vital Signs Vital signs: Vital Signs - 8 hr 04/26/24 15:40 04/26/24 17:03 Temperature 98.7 F Pulse Rate 79 Pulse Rate [Bilateral Dorsalis Pedis] 74 Respiratory Rate 16 Blood Pressure 173/81 H Pulse Oximetry 98 Oxygen Delivery Method Room Air MDM - Extremity Injury (Lower) <Aliya Mejia PA-C - Last Filed: 04/26/24 17:26> Differential Diagnosis Differential diagnosis: Likely ankle sprain and strain and ankle fracture Medical Records Attestation: I reviewed the patient's medical records. Imaging Data Extremity x-ray #1: My Impression: Agree with Radiology interpretation Radiologist's Impression: [address] [address] XRay Report Signed Patient: Zee Andres MR#: [id number] : 1945 Acct:[id number] Age/Sex: 78 / F Date of Service: 04/26/24 Loc: ED Accession Number: [id number] Procedure: XR ankle RT min 3V Ordering Provider: José Luis Morejon D.O. PROCEDURE: XR ANKLE RT MIN 3V INDICATIONS: Heavy object hit back, swelling, pain TECHNIQUE: 3 views of the ankle were acquired. COMPARISON: [facility], CR, XR ANKLE LT MIN 3V, 01/07/2021, 11:18. FINDINGS: Bones: Suspected chip fracture of the lateral malleolus. Soft tissues: Large tibiotalar joint effusion. Achilles tendon appears normal. IMPRESSION: Suspected chip fracture of the lateral malleolus. Large tibiotalar joint effusion. Dictated by: Vidal Lam M.D. on 04/26/2024 at 16:34 Approved by: Vidal Lam M.D. on 04/26/2024 at 16:34 MDM Narrative Medical decision making narrative: This is a 78-year-old woman presenting with concern for right ankle pain after a 30 lb piece of metal bed frame fell onto her ankle and heel today. X-ray shows a large joint effusion and possible lateral malleolar tip fracture. Patient does have some tenderness over the medial and lateral malleolus with some associated swelling. She declines crutches today which I think is reasonable as she has been ambulating well without them and given her age crutches may not be the best option for safety and mobility. She is encouraged to use the walker and/or cane as well as ankle boot that is provided today in the ER. Encouraged to follow up with Orthopedics, as well as her primary care provider. Tylenol for pain. She already takes meloxicam. Advised regarding RI CE and that she can place it in an Chad wrap and elevate when she is not wearing the boot. Return precautions provided, follow-up plan discussed, all questions answered. Discharge Plan Departure Patient Disposition: Home Clinical Impression: Ankle fracture, lateral malleolus, closed Qualifiers: Encounter type: initial encounter Fracture alignment: nondisplaced Laterality: right Qualified Code(s): S82.64XA - Nondisplaced fracture of lateral malleolus of right fibula, initial encounter for closed fracture Right ankle sprain Qualifiers: Encounter type: initial encounter Involved ligament of ankle: calcaneofibular ligament Qualified Code(s): S93.411A - Sprain of calcaneofibular ligament of right ankle, initial encounter Instructions: DI for Fracture Activity Restrictions/Additional Instructions: *You have been diagnosed with [chip fracture of lateral malleolus on the right, sprain] *What to do: *Please continue to take your regular medications as directed. [ ] New medication prescriptions sent to your pharmacy: [ ] [ ] New medication written as a paper prescription [ X] No new medications given *Please follow up with your primary care provider in 2-3 days, call for an appointment. Let them know you were seen in the Emergency Department and that we ask that you be seen in follow up. We will electronically transmit a record of today's note if your PCP is in our system. Your x-ray today was suspicious for a chip fracture of the lateral malleolus, you also have an effusion which is a fluid collection/swelling present at the site of her injury, I would encourage you to do your best to be nonweightbearing for the time being, use the boot provided and cane or walker to minimize weight bearing on this foot/ankle. When you are not moving around work on elevation and you may use an Chad wrap instead of the boot at times, such as at night. I would like you to follow up with Orthopedics, as well as her primary care provider, contact information for orthopedics is below you can see anyone in this office it does not have to be this specific provider. I hope you feel better soon. *If you do not have a primary care provider please contact the [facility] Resource line at [phone]. They will ask some questions about your medical history and help get you set up with a doctor in the community. *Return to Emergency Department if you should have any new, worsening or concerning symptoms, such as [fever greater than 101 F, shaking chills, worsening pain, persistent vomiting or other bothersome symptoms] Prescriptions: No Action benzonatate 100 mg capsule 100 mg PO BID PRN (Reason: cough) Qty: 20 0RF amlodipine [Norvasc] 2.5 MG tablet 5 mg PO QDAY Qty: 0 simvastatin 40 MG tablet 5 mg PO QDAY Qty: 0 quinapril 10 MG tablet 40 mg PO BID Qty: 0 aspirin 81 mg tablet,delayed release (DR/EC) 81 mg PO DAILY cholecalciferol (vitamin D3) 1,000 unit capsule 1,000 unit PO DAILY Referrals: Verito Anglin MD [Physician] - (probable chip fx lateral malleolus + large joint effusion) Aliya Hartmann MD [Primary Care Provider] - Stand Alone Forms: Patient Portal/API ED Sign-out <José Luis Morejon DO - Last Filed: 04/26/24 17:36> Cosign ED Attending Cosusamaature Attestation: Dr Morejon Co-Sign Statement: I was available for consultation during this patient's emergency department visit. This chart is signed by myself for administrative purposes only. I did not have direct contact with this patient during this visit. They were seen independently by the APC.
[2024-04-26 17:03] VITALS: PULSE 74
[2024-04-26 17:36] VITALS: BP 167/80; PULSE 74; RESP 20; O2SAT 99
== END 2024-04-26 17:37 | disposition home or self-care (01) ==
PROVIDERS: Emergency Provider Student in an Organized Health Care Education/Training Program; PCP Family Medicine
DX: S82.64XA Nondisplaced fracture of lateral malleolus of right fibula, initial encounter for closed fracture (principal); S93.411A Sprain of calcaneofibular ligament of right ankle, initial encounter; W20.8XXA Other cause of strike by thrown, projected or falling object, initial encounter
CPT/HCPCS: 73610; 99281; 99283

== ENCOUNTER → 2024-05-15 09:46 | Outpatient (CLI) | payer OTHER, SELFPAY ==
--- NOTE | 2024-05-15 09:47 | DI.RAD.S_ITS ---
PROCEDURE: XR DEXA AXIAL SKELETON INDICATIONS: DISORDER OF BONE DENSITY AND STRUCTURE COMPARISON: [facility], , XR DEXA AXIAL SKELETON, 05/09/2022, 10:09. [facility], CR, XR DEXA AXIAL SKELETON, 05/06/2020, 14:32. FINDINGS: Lumbar Spine: Bone mineral density 0.919 g/cm2, T score -0.9. Since the most recent prior study, there has been a statistically significant increase in bone mineral density by 4.4 %. Left Hip: Bone mineral density is 0.770 g/cm2, T score -1.4. Since the most recent prior study, there has been no statistically significant change in bone mineral density. Left Femoral Neck: Bone mineral density 0.694 g/cm2, T score -1.4. Right Hip: Bone mineral density 0.816 g/cm2, T score -1.0. Since the most recent prior study, there has been a statistically significant increase in bone mineral density by 5.5 %. Right Femoral Neck: Bone mineral density 0.746 g/cm2, T score -0.9. Fracture Risk Calculation (when applicable): 10-year fracture risk of a major osteoporotic fracture 11 % and of a hip fracture 2.5 %. (T score greater or equal to -1.0 to: NORMAL) (T score from -1.1 to -2.4: OSTEOPENIA) (T score less than or equal to -2.5: OSTEOPOROSIS) IMPRESSION: 1. By WHO criteria, patient has osteopenia. 2. 10-year fracture risk of a major osteoporotic fracture 11 % and of a hip fracture 2.5 %. 3. Interval statistically significant increase in bone mineral density at the lumbar spine and right hip and no significant change at the left hip. Follow-up guidelines as follows: Osteoporosis: Consider a repeat DEXA and Vertebral Fracture Assessment (VFA) exam in 2 years or sooner if medically necessary, to reassess this patient's status. Osteopenia: Consider a repeat DEXA in 2-3 years to reassess this patient's status, or if there is a new clinical indication. Normal: Consider a repeat DEXA in 5 years or sooner, or if there is a new clinical indication. All treatment decisions require clinical judgment and consideration of individual patient factors, including patient preferences, comorbidities, previous drug use, risk factors not captured in the FRAX model (e.g., frailty, falls, vitamin D deficiency, increased bone turnover, interval significant decline in bone density ) and possible under- or over-estimation of fracture risk by FRAX. In addition, the NOF Guide recommends that FDA-approved medical therapies be considered in postmenopausal women and men age >= 50 years with a: * Hip or vertebral (clinical or morphometric) fracture * T-score of <=-2.5 at the spine or hip * Ten-year fracture probability by FRAX of >= 3% for hip fracture or >=20% for major osteoporotic fracture. People with diagnosed cases of osteoporosis or at high risk for fracture should have regular bone mineral density tests. For patients eligible for Medicare, routine testing is allowed once every 2 years. The testing frequency can be increased to one year for patients who have rapidly progressing disease, those who are receiving or discontinuing medical therapy to restore bone mass, or have additional risk factors. Approved by: Mayito Norman M.D. on 05/15/2024 at 20:52
== END ==
LOC: RAD 09:46
PROVIDERS: PCP Family Medicine; Referring Provider Family Medicine; Visit Provider Family Medicine
DX: M85.89 Other specified disorders of bone density and structure, multiple sites (principal)
CPT/HCPCS: 77080

== ENCOUNTER → 2024-11-16 09:43 | Outpatient (CLI) | payer OTHER, SELFPAY ==
--- NOTE | 2024-11-16 | DI.MG.S_ITS ---
BILATERAL DIGITAL SCREENING MAMMOGRAM 3D/2D WITH CAD: 11/16/2024 CLINICAL: Routine screening. Family history of breast cancer. Comparison is made to exams dated: 05/24/2023 mammogram, 02/25/2022 mammogram, 09/19/2019 mammogram, 05/04/2020 mammogram, 10/24/2019 mammogram, and 09/14/2017 mammogram - . The breasts are heterogeneously dense, which may obscure small masses (category c / 51-75% glandular tissue). Current study was also evaluated with a Computer Aided Detection (CAD) system. No significant masses, calcifications, or other findings are seen in either breast. There has been no significant interval change. IMPRESSION: NEGATIVE There is no mammographic evidence of malignancy. A 1 year screening mammogram is recommended. Based on the Tyrer Cuzick model (a risk assessment model) the patient's lifetime risk is 6.0% and her 10 year risk is 0.0%. According to the ACR, ACS, and NCCN guidelines, an annual breast MRI exam along with mammogram is recommended if the patient's lifetime risk is 20% or greater. This exam was interpreted at Station ID: [id number]. NOTE: For mammograms, a report in lay terms will be sent to the patient. Approximately 15% of breast malignancies will not be visualized mammographically. In the management of a palpable breast mass, a negative mammogram must not discourage biopsy of a clinically suspicious lesion. Electronically Signed By: Aline Asher M.D., Ph.D. manish/mohsen:11/18/2024 08:32:51 letter sent: Normal Exam ACR BI-RADS Category 1: Negative
== END ==
PROVIDERS: PCP Family Medicine; Referring Provider Family Medicine; Visit Provider Family Medicine
DX: Z12.31 Encounter for screening mammogram for malignant neoplasm of breast (principal); Z80.3 Family history of malignant neoplasm of breast; R92.333 Mammographic heterogeneous density, bilateral breasts
CPT/HCPCS: 77063; 77067

== ENCOUNTER → 2025-03-03 06:41 | Outpatient (CLI) | payer OTHER, SELFPAY ==
--- NOTE | 2025-03-03 06:43 | DI.US.S_ITS ---
PROCEDURE: US ABDOMEN COMPLETE INDICATIONS: Pancreatic cyst/renal cyst TECHNIQUE: Real-time scanning was performed of the abdominal and retroperitoneal organs, with image documentation. COMPARISON: None. FINDINGS: Liver: Liver is normal in size. Multiple simple cysts the largest measuring 2.9 cm. Gallbladder: Unremarkable. Biliary ducts: Intrahepatic bile ducts are non-dilated. Extrahepatic bile duct caliber measures 6.1 mm. Normal is 6-7 mm or less in diameter, or 10 mm or less post-cholecystectomy. Pancreas: Visualized portions of the pancreas are sonographically normal. Spleen: Spleen is normal in size and homogeneous in echotexture. Kidneys: Kidneys are normal in size and echotexture. Right kidney measures 9.5 cm long; left kidney measures 9.5 cm long. No hydronephrosis or nephrolithiasis. No solid masses. Aorta: Visualized aorta is normal in caliber at less than 3 cm. Iliacs: Proximal common iliac arteries are normal in caliber at less than 2.5 cm. IVC: Intrahepatic inferior vena cava is patent. Miscellaneous: No free abdominal fluid. IMPRESSION: Simple hepatic cysts. Dictated by: Tonie Ricardo M.D. on 03/03/2025 at 14:55 Approved by: Tonie Ricardo M.D. on 03/03/2025 at 14:56
== END ==
LOC: US 06:42
PROVIDERS: PCP Family Medicine; Referring Provider Family Medicine; Visit Provider Family Medicine
DX: K86.2 Cyst of pancreas (principal); N28.1 Cyst of kidney, acquired; K76.89 Other specified diseases of liver
CPT/HCPCS: 76700

== ENCOUNTER → 2025-03-25 15:11 | Outpatient (CLI) | payer OTHER, SELFPAY ==
--- NOTE | 2025-03-25 15:11 | DI.US.S_ITS ---
PROCEDURE: US RENAL COMPLETE INDICATIONS: RENAL CYST TECHNIQUE: Real-time scanning was performed of the kidneys and bladder, with image documentation. COMPARISON: [facility], US, US ABDOMEN COMPLETE, 03/03/2025, 7:08. FINDINGS: Kidneys: Kidneys are normal in size. Right kidney measures 9.9 cm long; left kidney measures 9.7 cm long. Right renal cortical thickness is 1.7 cm; left renal cortical thickness is 0.6 cm. Renal cortical echotexture is normal. No hydronephrosis or nephrolithiasis. No suspicious solid mass lesions. Right renal cortical cyst measuring 4 mm. Bladder: Pre-void bladder volume is 403 mL. Post-void residual is 0 mL. Pre-void images demonstrate no intraluminal masses or stones. On pre-void images, bilateral ureteral jets are noted with color Doppler interrogation. (Of note, ureteral jets may not be detectable in up to 25% of cases due to insufficient differences in specific gravity between ureteral and bladder urine). Miscellaneous: No free pelvic fluid. IMPRESSION: Right renal cortical cyst measuring 4 mm. Normal appearance of the kidneys and urinary bladder. Dictated by: Rell Beard M.D. on 03/26/2025 at 10:48 Approved by: Rell Beard M.D. on 03/26/2025 at 10:51
== END ==
PROVIDERS: PCP Family Medicine; Referring Provider Family Medicine; Visit Provider Family Medicine
DX: N28.1 Cyst of kidney, acquired (principal)
CPT/HCPCS: 76770

== ENCOUNTER → 2025-06-09 09:59 | Outpatient (CLI) | payer OTHER, SELFPAY ==
--- NOTE | 2025-06-09 10:02 | DI.RAD.S_ITS ---
PROCEDURE: XR ANKLE RT MIN 3V INDICATIONS: ANKLE PAIN TECHNIQUE: 3 views of the ankle were acquired. COMPARISON: [facility], CR, XR ANKLE RT MIN 3V, 04/26/2024, 15:49. FINDINGS: Bones: Subtotally united chronic nondisplaced fractures through the medial and lateral malleolar tips appreciated. Tiny avulsion fracture off the lateral cortex of the lateral malleolus noted as before Tibiotalar and talocalcaneal joints: Ankle mortise shows asymmetric lateral widening suggesting sprain of the lateral ligament complex. Moderate degeneration ankle mortise and mild degeneration of the talocalcaneal joint and talonavicular joints appreciated Soft tissues: No soft tissue swelling, calcification or mass. IMPRESSION: Asymmetric lateral ankle mortise widening suggest sprain of the lateral ilium a complex. Subtotally united transverse fractures the medial and lateral malleoli-near anatomic alignment Other chronic findings as described. Dictated by: Raghav Clifton M.D. on 06/10/2025 at 9:38 Approved by: Raghav Clifton M.D. on 06/10/2025 at 9:42
== END ==
PROVIDERS: PCP Family Medicine; Referring Provider Family Medicine; Visit Provider Family Medicine
DX: S82.84 Bimalleolar fracture of lower leg (principal); M19.071 Primary osteoarthritis, right ankle and foot; M25.571 Pain in right ankle and joints of right foot; G89.29 Other chronic pain
CPT/HCPCS: 73610

== ENCOUNTER → 2025-09-10 09:16 | Outpatient (CLI) | payer OTHER, SELFPAY ==
--- NOTE | 2025-09-10 09:17 | DI.CT.S_ITS ---
PROCEDURE: CT HEAD/BRAIN WO CON
== END ==
LOC: CT 09:17
PROVIDERS: PCP Family Medicine; Referring Provider Family Medicine; Visit Provider Family Medicine
DX: S00.83XA Contusion of other part of head, initial encounter (principal); G44.301 Post-traumatic headache, unspecified, intractable; G44.201 Tension-type headache, unspecified, intractable; W19.XXXA Unspecified fall, initial encounter
CPT/HCPCS: 70450